=== PATIENT | male | born 1995 | race Caucasian/White ===

== ENCOUNTER 2018-08-30 16:14 | Emergency (ER) | payer BC, MEDICAID, OTHER ==
[~2018-08-30] VITALS: Ht 177.8 cm; Wt 59.0 kg
--- NOTE | 2018-08-30 16:15 | NUR ---
Attempted to triage pt, pt was not found in ER waiting room.
--- NOTE | 2018-08-30 16:36 | NUR ---
PT A/OX4, PRESENTS TO THE ER C/O R EARACHE. PT STATES THE PAIN STARTED THIS AM, NON-PROVOKED, PRESSURE-LIKE PAIN, DOES NOT RADIATE, 05/24, CONSTANT. 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 VSS. PT DENIES C/P, SOB, N/V/D, DIZZINESS, HEADACHE.
--- NOTE | 2018-08-30 16:58 | NUR ---
AIDA FLORES AT BEDSIDE FOR MSE.
[2018-08-30] MEDS ORDERED: MORPHINE SULFATE 4 MG/1 ML DISP.SYRIN IM ONE ×2 (17:00→18:00)
[2018-08-30] MEDS ORDERED: diphenhydrAMINE 50 MG/1 ML VIAL IV ONE (17:00)
[2018-08-30] MEDS ORDERED: MORPHINE SULFATE 4 MG/1 ML DISP.SYRIN ONE ×2 (17:07→17:52)
[2018-08-30] MEDS ORDERED: diphenhydrAMINE 50 MG/1 ML VIAL ONE (17:07)
[2018-08-30] MEDS ORDERED: diphenhydrAMINE 50 MG/1 ML VIAL IM ONE ×2 (17:15→18:00)
--- NOTE | 2018-08-30 18:07 | NUR ---
Patient discharged to home in stable conditon. Written and verbal after care instructions given. Patient verbalizes understanding of instructions. PT D/C W/ PRESCRIPTIONS. ALL BELONGINGS W/ PT. PT SELF-AMBULATED W/O DIFFICULTY. PT INSTRUCTED NOT TO DRIVE, STATES HE WILL TAKE UBER HOME.
[2018-08-30 18:08] VITALS: BP 111/82
== END 2018-08-30 18:11 | disposition home or self-care (01) ==
LOC: ER 16:15
DX: H66.91 Otitis media, unspecified, right ear (principal)
CPT/HCPCS: 96372 ×3; 99283; J1200; J2270 ×2; A4663

== ENCOUNTER 2019-12-17 13:58 | Emergency (ER) | payer OTHER, MEDICAID ==
[~2019-12-17] VITALS: Ht 177.8 cm; Wt 65.8 kg
--- NOTE | 2019-12-17 14:18 | NUR ---
PT SEEN AND EXAMINED BY DR QUEEN, DISCHARGE INSTRUCTIONS GIVEN BY . ADVISED OTC MOTRIN FOR PAIN.
== END 2019-12-17 14:18 | disposition home or self-care (01) ==
LOC: ER 13:58
DX: S40.012A Contusion of left shoulder, initial encounter (principal); S70.12XA Contusion of left thigh, initial encounter; Y09 Assault by unspecified means; Y92.89 Other specified places as the place of occurrence of the external cause
CPT/HCPCS: A4663

== ENCOUNTER 2020-09-23 13:03 | Emergency (ER) | payer MEDICAID, OTHER ==
[~2020-09-23] VITALS: Ht 177.8 cm; Wt 63.5 kg
[2020-09-23 15:39] VITALS: BP 114/69
--- NOTE | 2020-09-23 15:39 | NUR ---
Patient discharged to home in stable condition. Written and verbal after care instructions given. Patient verbalizes understanding of instructions. Stressed follow up or return to ER for worsening s/s.
== END 2020-09-23 15:47 | disposition home or self-care (01) ==
LOC: ER 13:05
DX: B34.9 Viral infection, unspecified (principal); Z20.822 Contact with and (suspected) exposure to COVID-19
CPT/HCPCS: 87426; 99283; U0003; A4663

== ENCOUNTER 2020-10-01 11:45 | Emergency (ER) | payer MEDICAID ==
[~2020-10-01] VITALS: Ht 170.2 cm; Wt 61.2 kg
[2020-10-01 12:04] VITALS: BP 128/87
== END 2020-10-01 12:08 | disposition home or self-care (01) ==
LOC: ER 11:45
DX: S64.21XA Injury of radial nerve at wrist and hand level of right arm, initial encounter (principal); X58.XXXA Exposure to other specified factors, initial encounter; Y93.89 Activity, other specified; Y92.031 Bathroom in apartment as the place of occurrence of the external cause
CPT/HCPCS: A4663

== ENCOUNTER 2020-11-23 15:15 | Emergency (ER) | payer MEDICAID ==
[~2020-11-23] VITALS: Ht 172.7 cm; Wt 65.3 kg
[2020-11-23] MEDS ORDERED: LEVE500T9 PO (15:38)
[2020-11-23] MEDS ORDERED: DIAZ2TAB PO (15:38)
[2020-11-23] MEDS ORDERED: ALPR2TAB7 PO ×2 (15:39→18:03)
[2020-11-23] MEDS ORDERED: ONDANSETRON ODT 4 MG TAB.RAPDIS SL ONE (15:45)
[2020-11-23] MEDS ORDERED: AZITHROMYCIN IV 500 MG in IV DEXTROSE 5% 250 ML IV ONE (15:45)
[2020-11-23] MEDS ORDERED: ENOXAPARIN SODIUM 60 MG/0.6 ML DISP.SYRIN SQ ONE (15:45)
[2020-11-23] MEDS ORDERED: ONDANSETRON ODT 4 MG TAB.RAPDIS ONE (15:53)
--- NOTE | 2020-11-23 17:29 | NUR ---
Pt resting in bed, no complaints, no distress noted. Gave pt dinner tray.
[2020-11-23] MEDS ORDERED: ONDA4TAB5 PO ×2 (18:03→18:12)
[2020-11-23] MEDS ORDERED: ALPR2TAB2 PO (18:11)
--- NOTE | 2020-11-23 18:28 | NUR ---
Gave pt RX and d/c instructions, pt verbalized understanding.
== END 2020-11-23 18:34 | disposition home or self-care (01) ==
LOC: ER 15:15
DX: S06.0X1A Concussion with loss of consciousness of 30 minutes or less, initial encounter (principal); R40.2412 Glasgow coma scale score 13-15, at arrival to emergency department; Y09 Assault by unspecified means; Y92.89 Other specified places as the place of occurrence of the external cause; Z91.010 Allergy to peanuts; F41.9 Anxiety disorder, unspecified; Z76.0 Encounter for issue of repeat prescription
CPT/HCPCS: 70450; 93005; A4663; Q0162

== ENCOUNTER 2022-02-08 18:16 | Emergency (ER) | payer MEDICAID, OTHER ==
[~2022-02-08] VITALS: Ht 177.8 cm; Wt 56.7 kg
[~2022-02-08 18:16] MED LIST: ALPR2TAB2 PO; ALPR2TAB7 PO; LEVE500T9 PO; ONDA4TAB5 PO
[2022-02-08] MEDS ORDERED: IV NORMAL SALINE 500 ML BAG IV ONE (19:30)
--- NOTE | 2022-02-08 21:33 | NUR ---
pt ambulatory on his feet denies pain. able to use the restroom.
--- NOTE | 2022-02-08 22:00 | NUR ---
Dr. Luciano at bedside spoke with the pt and he is clear for d/c iv was removed.
--- NOTE | 2022-02-08 22:02 | NUR ---
Patient discharged to home in stable condition. Written and verbal after care instructions given. Patient verbalizes understanding of instructions. Stressed follow up or return to ER for worsening s/s. pt ambulatory steady on his feet denies pain or dizziness.
[2022-02-08 22:03] VITALS: BP 122/79
== END 2022-02-08 22:03 | disposition home or self-care (01) ==
LOC: ER 18:17
DX: T40.411A Poisoning by fentanyl or fentanyl analogs, accidental (unintentional), initial encounter (principal); R00.0 Tachycardia, unspecified; F19.10 Other psychoactive substance abuse, uncomplicated; Y92.89 Other specified places as the place of occurrence of the external cause; Z91.010 Allergy to peanuts; G40.909 Epilepsy, unspecified, not intractable, without status epilepticus; F41.9 Anxiety disorder, unspecified; Z79.899 Other long term (current) drug therapy
CPT/HCPCS: 71045; 96360; 99284; J7040; A4663

== ENCOUNTER → 2023-08-29 | Emergency (ER) | payer BC, OTHER ==
[~2023-08-29] VITALS: Ht 175.3 cm; Wt 68.0 kg
[~2023-08-29] MED LIST changes: +IV NORMAL SALINE 1000 ML BAG IV ONE; +KETOROLAC TROMETHAMINE 15 MG INJ IVP ONE; +KETOROLAC TROMETHAMINE 30 MG INJ ONE; +METOCLOPRAMIDE HCL 10 MG/2 ML VIAL IV ONE; +METOCLOPRAMIDE HCL 10 MG/2 ML VIAL ONE
[2023-08-29 16:34] LABS: BASOPHILS # (AUTO) 0.1 K/UL (0.0-0.2); BASOPHILS % (AUTO) 0.9 % (0.0-2.0); EOSINOPHILS % (AUTO) 0.7 % (0.0-7.0); HEMATOCRIT 38.5 % (36.7-47.1); HEMOGLOBIN 13.4 g/dL (12.5-16.3); LYMPHOCYTES # (AUTO) 1.7 K/uL (0.8-4.8); LYMPHOCYTES % (AUTO) 26.2 % (20.5-51.5); MEAN CORPUSCULAR HGB CONC 35 g/dL (32.5-36.3); MEAN CORPUSCULAR VOLUME 86.3 fL (73.0-96.2); MONOCYTES # (AUTO) 0.5 K/uL (0.1-1.30); MONOCYTES % (AUTO) 7.4 % (0.0-11.0); NEUTROPHILS # (AUTO) 4.3 K/uL (1.8-8.9); NEUTROPHILS % (AUTO) 64.8 % (38.5-71.5); PLATELET COUNT (AUTO) 314 K/uL (152-348); RED BLOOD CELL COUNT(AUTO) 4.46 MIL/uL (4.06-5.63); RED CELL DISTRIBUTION WIDTH 11.9 % (12.1-16.2); WHITE BLOOD COUNT (AUTO) 6.7 K/uL (3.6-10.2)
[2023-08-29 16:56] LABS: DIFFERENTIAL COMMENT 1
[2023-08-29 17:02] VITALS: BP 116/83; O2SAT 97
[2023-08-29 17:37] LABS: ALANINE AMINOTRANSFERASE 10 U/L (16-63); ALKALINE PHOSPHATASE 64 U/L (50-136); ASPARTATE AMINOTRANSFERASE 8 U/L (15-37); BILIRUBIN,DIRECT 0.2 mg/dL (0.0-0.2); BILIRUBIN,TOTAL 0.5 mg/dL (0.2-1.0); CALCIUM 9.2 mg/dL (8.5-10.1); CARBON DIOXIDE 30 mmol/L (21-32); CHLORIDE 101 mmol/L (98-107); CREATININE 0.8 mg/dL (0.6-1.3); GLUCOSE 100 mg/dL (74-106); LIPASE 26 U/L (16-77); POTASSIUM 3.8 mmol/L (3.5-5.1); SODIUM SERUM 140 mmol/L (136-145); TOTAL PROTEIN, SERUM 7.3 g/dL (6.4-8.2); UREA NITROGEN, BLOOD 13 mg/dL (7-18)
== END | disposition home or self-care (01) ==
LOC: ER 14:17
DX: R11.2 Nausea with vomiting, unspecified (principal); R07.89 Other chest pain; Z91.010 Allergy to peanuts; Z79.899 Other long term (current) drug therapy
CPT/HCPCS: 99285; 74176; 96374; 71045; 96361; 96375; 80076; 80048; 83690; 85025; 84484; 36415; 93005; J1885; J2765; J7040; A4606; A4663